=== PATIENT | male | born 1975 | race Caucasian/White ===

== ENCOUNTER 2017-04-15 21:25 | Emergency (ER) | payer MEDICAID, OTHER ==
[2017-04-15 21:46] VITALS: BP 124/74; RESP 18; TEMP 97.3; O2SAT 98
--- NOTE | 2017-04-15 22:37 | ED PDOC ---
HPI: Chest Pain Time Seen by Provider: 04/15/17 21:43 Chief Complaint (Nursing): Chest Pain Chief Complaint (Provider): Chest pain History Per: Patient History/Exam Limitations: no limitations Onset/Duration Of Symptoms: Hrs (one) Current Symptoms Are (Timing): Still Present Associated Symptoms: Nausea Additional Complaint(s): Patient is a 42 year old male presenting with pulsating chest pain that started one hour prior to arrival, associated with right-sided chest tightness that radiates to the right arm (with numbness) and does not worsen with positioning, exertion, or deep breathing. Also reports dizziness, nausea, headache, and a family history of heart problems, diabetes, hypertension, and cancer. Of note, he did not take any medication for the pain. Denies cough, shortness of breath, or leg swelling. Of note, patient reports similar chest pain 2 months ago for which he was admitted overnight at an unnamed hospital. PCP: none provided. Against Medical Advice - AMA Patient Left Against Medical Advice: The patient declines admission to the hospital and wishes to leave the Emergency Department. This action is against my medical advice. This decision was made with informed refusal. The patient was told that admission to the hospital is necessary. Explanation of the reasons why were discussed. The risks of leaving were explained to the patient and include, but are not limited to, worsening of known or currently unknown conditions, permanent disability and from undiagnosed or untreated conditions. The patient has the capacity to make this informed decision and understands my explanation of the current medical problem and risks of leaving. The patient voluntarily accepts these risks and signed an AMA form documenting our conversation. The patient was given the opportunity to ask questions and reconsider. The patient was encouraged to return to the Emergency Department at any time for further care. Past Medical History Reviewed: Historical Data, Nursing Documentation, Vital Signs Vital Signs: Last Vital Signs Temp 97.3 F L 04/15/17 21:38 Pulse 98 H 04/15/17 21:38 Resp 18 04/15/17 21:38 BP 124/74 04/15/17 21:38 Pulse Ox 98 04/16/17 02:31 - Medical History PMH: No Chronic Diseases - Surgical History Surgical History: No Surg Hx - Family History Family History: States: CAD, Diabetes, Hypertension, Other Other Family History: Cancer - Allergies Allergies/Adverse Reactions: Allergies Allergy/AdvReac Type Severity Reaction Status Date / Time No Known Allergies Allergy Verified 07/11/15 22:00 DREW Risk Score for UA/NSTEMI - DREW Risk Score Age > 64: NO 3 or more CAD Risk Factors: NO Known CAD (Stenosis greater than 50%): NO Aspirin use in past 7 days: NO Severe Angina: NO EKG ST changes greater than 0.5mm: NO Positive Cardiac Marker: NO DREW Score: 0 Risk %: 5% Wells Criteria for PE - Wells Criteria for Pulmonary Embolism Clinical Signs and Symptoms of DVT: No P.E is #1 Diagnosis, or Equally Likely: No Heart Rate >100: No Immobilization at least 3 days;Surgery previous 4 weeks: No Previous, objectively diagnosed PE or DVT: No Hemoptysis: No Malignancy w/treatment within 6 months, or palliative: No Total Score: 0 Review of Systems ROS Statement: Except As Marked, All Systems Reviewed And Found Negative Constitutional: Positive for: Other (Dizziness, headache) Cardiovascular: Positive for: Chest Pain (right-sided with chest tightness. Radiates to right arm.) Respiratory: Negative for: Cough, Shortness of Breath Gastrointestinal: Positive for: Nausea Musculoskeletal: Negative for: Other (Leg swelling) Neurological: Positive for: Numbness (Right arm) Physical Exam - Reviewed Nursing Documentation Reviewed: Yes Vital Signs Reviewed: Yes - Physical Exam Appears: Positive for: Well, Non-toxic, No Acute Distress (Comfortable). Negative for: Uncomfortable Head Exam: Positive for: ATRAUMATIC, NORMAL INSPECTION, NORMOCEPHALIC Skin: Positive for: Normal Color, Warm, Dry Eye Exam: Positive for: EOMI, Normal appearance, PERRL ENT: Positive for: Normal ENT Inspection Neck: Positive for: Normal, Painless ROM, Supple Cardiovascular/Chest: Positive for: Regular Rate, Rhythm. Negative for: Murmur Respiratory: Positive for: Normal Breath Sounds. Negative for: Accessory Muscle Use, Respiratory Distress Gastrointestinal/Abdominal: Positive for: Normal Exam, Bowel Sounds, Soft Back: Positive for: Normal Inspection. Negative for: L CVA Tenderness, R CVA Tenderness Extremity: Positive for: Normal ROM. Negative for: Pedal Edema Neurologic/Psych: Positive for: Alert, Oriented - Laboratory Results Result Diagrams: 04/15/17 22:45 04/15/17 22:45 - ECG ECG: Positive for: Interpreted By Me, Viewed By Me ECG Rhythm: Positive for: Normal QRS, Normal ST Segment, Sinus Rhythm, Sinus Tachycardia. Negative for: ST/T Changes Rate: 105 O2 Sat by Pulse Oximetry: 98 (RA) Pulse Ox Interpretation: Normal - Radiology X-Ray: Interpreted by Me, Viewed By Me X-Ray Interpretation: No Acute Disease - Progress Re-evaluation Time: 02:30 Condition: Re-examined, Improved Medical Decision Making Medical Decision Making: Time: 22:19 Initial impression: Chest pain Differential includes but not limited to acute coronary syndrome, pulmonary embolism, aortic dissection. Initial plan: * EKG * Labs * Chest X-Ray * Appointment Manager * Reevaluation Scribe Attestation: Documented by Summer Sheridan, acting as a scribe for Monique Perea MD. Provider Scribe Attestation: All medical record entries made by the Scribe were at my direction and personally dictated by me. I have reviewed the chart and agree that the record accurately reflects my personal performance of the history, physical exam, medical decision making, and the department course for this patient. I have also personally directed, reviewed, and agree with the discharge instructions and disposition. [id number] CT Scan: EXAM: CT Angiography Chest With Intravenous Contrast CLINICAL HISTORY: 42 years old, male; Pain; Chest pain TECHNIQUE: Axial computed tomographic angiography images of the chest with intravenous contrast using pulmonary embolism protocol. This CT exam was performed using one or more of the following dose reduction techniques: automated exposure control, adjustment of the mA and/or kV according to patient size, and/or use of iterative reconstruction technique. MIP reconstructed images were created and reviewed. Coronal and sagittal reformatted images were created and reviewed. CONTRAST: 95 mL of [id number] administered intravenously. EXAM DATE/TIME: 04/15/2017 11:51 PM COMPARISON: CR - CHEST TWO VIEWS (PA/LAT) 04/15/2017 11:01:33 PM FINDINGS: Heart, Aorta and Pulmonary arteries: The heart is enlarged. There is trace fluid in pericardial recesses. There is no aneurysm or dissection. Bolus timing limits evaluation of pulmonary arteries. There are no pulmonary emboli. Lungs and Pleural Spaces: Trachea and main bronchi are patent. There is no pneumothorax.There is dependent atelectasis greatest at the lung bases. There is no focal consolidation. There are no effusions Mediastinum: There is fatty infiltration of the mediastinum. There are no pathologically enlarged mediastinal or hilar nodes. Esophagus is unremarkable. Thyroid: Thyroid is only partially imaged. Bones/joints: There are degenerative changes in the osseus structures. Soft tissues: unremarkable Upper abdomen: There is fatty infiltration of the liver. IMPRESSION: Slightly limited by bolus timing, no aneurysm, dissection or pulmonary embolus; mild cardiomegaly; no focal pneumonia; fatty liver. Scribe Attestation: Documented by Vani Maharaj, acting as a scribe for Monique Perea MD. Scribe Attestation: All medical record entries made by the Scribe were at my direction and personally dictated by me. I have reviewed the chart and agree that the record accurately reflects my personal performance of the history, physical exam, medical decision making, and the department course for this patient. I have also personally directed, reviewed, and agree with the discharge instructions and disposition. Disposition - Clinical Impression Clinical Impression: Chest pain, Left against medical advice - Patient ED Disposition Is Patient to be Admitted: No Doctor Will See Patient In The: Office Counseled Patient/Family Regarding: Studies Performed, Diagnosis, Need For Followup - Disposition Referrals: Etta Mitchell MD [Family Provider] - Disposition: Routine/Home Disposition Time: 02:30 Condition: GOOD Additional Instructions: Return for worsening. Follow up with your PCP in 2-3 days. Instructions: Chest Pain (ED), Against Medical Advice (ED)
[2017-04-15 22:58] LABS: BASO % 0.1 % (0.0-2.0); EOS # 0.1 K/uL (0.0-0.7); HEMATOCRIT 43.5 % (35.0-51.0); LYMPH % 14.8 % (20.0-40.0); MEAN CELL VOLUME 85.6 fl (80.0-94.0); MEAN CORPUSCULAR HEMOGLOBIN 28.2 pg (27.0-31.0); MEAN CORPUSCULAR HGB CONC 32.9 g/dL (33.0-37.0); MONO # 0.7 K/uL (0.0-0.8); MONO % 11.1 % (0.0-10.0); NEUT # 4.8 K/uL (1.8-7.0); NRBC % 0.1 % (0.0-0.0); RED CELL DISTRIBUTION WIDTH 13.2 % (11.5-14.5); WHITE BLOOD COUNT 6.6 K/uL (4.8-10.8)
[2017-04-15] MEDS ORDERED: Morphine 4 MG/ML VIAL IVP ONE (22:58)
[2017-04-15 23:05] LABS: BLOOD UREA NITROGEN 18 mg/dl (9-20); GFR AFRICAN-AMERICAN > 60
[2017-04-15 23:45] LABS: CALCIUM 9.7 mg/dL (8.4-10.2); CARBON DIOXIDE 27 mmol/L (22-30); CHLORIDE 104 mmol/L (98-107); GLUCOSE,RANDOM 94 mg/dL (75-110); SODIUM 141 mmol/l (132-148)
[2017-04-16] MEDS ORDERED: Sodium Chloride 0.9% 50 ML IV ONE ×2 (00:55→01:08)
[2017-04-16] MEDS ORDERED: Iodixanol 320 MG/ML 100 ML BOTTLE IV ONE ×2 (00:55→01:07)
--- NOTE | 2017-04-16 01:48 | CT ---
EXAM: CT Angiography Chest With Intravenous Contrast CLINICAL HISTORY: 42 years old, male; Pain; Chest pain TECHNIQUE: Axial computed tomographic angiography images of the chest with intravenous contrast using pulmonary embolism protocol. This CT exam was performed using one or more of the following dose reduction techniques: automated exposure control, adjustment of the mA and/or kV according to patient size, and/or use of iterative reconstruction technique. MIP reconstructed images were created and reviewed. Coronal and sagittal reformatted images were created and reviewed. CONTRAST: 95 mL of administered intravenously. EXAM DATE/TIME: 04/15/2017 11:51 PM COMPARISON: CR - CHEST TWO VIEWS (PA/LAT) 04/15/2017 11:01:33 PM FINDINGS: Heart, Aorta and Pulmonary arteries: The heart is enlarged. There is trace fluid in pericardial recesses. There is no aneurysm or dissection. Bolus timing limits evaluation of pulmonary arteries. There are no pulmonary emboli. Lungs and Pleural Spaces: Trachea and main bronchi are patent. There is no pneumothorax.There is dependent atelectasis greatest at the lung bases. There is no focal consolidation. There are no effusions Mediastinum: There is fatty infiltration of the mediastinum. There are no pathologically enlarged mediastinal or hilar nodes. Esophagus is unremarkable. Thyroid: Thyroid is only partially imaged. Bones/joints: There are degenerative changes in the osseus structures. Soft tissues: unremarkable Upper abdomen: There is fatty infiltration of the liver. IMPRESSION: Slightly limited by bolus timing, no aneurysm, dissection or pulmonary embolus; mild cardiomegaly; no focal pneumonia; fatty liver
[2017-04-16 02:32] VITALS: PULSE 105
--- NOTE | 2017-04-16 10:04 | RAD ---
HISTORY: chest pain COMPARISON: CTA chest performed 04/16/17, chest x-ray performed 09/17/13 TECHNIQUE: Chest PA and lateral FINDINGS: Examination limited by habitus and patient obliquity. LUNGS: No focal consolidation. Please note that chest x-ray has limited sensitivity for the detection of pulmonary masses. PLEURA: No significant pleural effusion identified. No definite pneumothorax . CARDIOVASCULAR: Borderline cardiomegaly. OSSEOUS STRUCTURES: Degenerative changes of the spine. VISUALIZED UPPER ABDOMEN: Unremarkable. OTHER FINDINGS: None. IMPRESSION: No focal consolidation, significant pleural effusion, or definite pneumothorax identified.
--- NOTE | 2017-04-16 10:19 | CARD ---
APPROVED REPORT EKG Measurement Heart [id number] ID [id number] <Conclusion> Sinus tachycardia Otherwise normal ECG
== END 2017-04-16 03:00 | disposition left against medical advice (07) ==
LOC: H.ER 21:25 → EDBD 21:25 → H.ER 04-16 03:00
DX: R07.89 Other chest pain (principal); Z82.49 Family history of ischemic heart disease and other diseases of the circulatory system

== ENCOUNTER 2018-02-25 15:33 | Emergency (ER) | payer MEDICAID ==
[2018-02-25 15:45] VITALS: RESP 16; TEMP 98.5
--- NOTE | 2018-02-25 16:19 | ED PDOC ---
HPI: Chest Pain Time Seen by Provider: 02/25/18 15:52 Chief Complaint (Nursing): Chest Pain Chief Complaint (Provider): chest pain History Per: Patient History/Exam Limitations: no limitations Onset/Duration Of Symptoms: Days (2) Current Symptoms Are (Timing): Intermittent Episodes Severity: Severe Quality: Sharp Associated Symptoms: Nausea, Dyspnea. denies: Diaphoresis, Syncope Exacerbating Factors: Deep Breathing Additional Complaint(s): RIGHT sided chest pain intermittent episodes last few minutes occurs with exertion and resolves with some rest recurrent and has happened 2-3 times over last day today pain associated with RUQ and RIGHT flank pain as well has been seen in this ER multiple times for the same pain, no outpatient follow up done PMD in [place]. does not remember name. Past Medical History Reviewed: Historical Data, Nursing Documentation, Vital Signs Vital Signs: Last Vital Signs Temp 98.5 F 02/25/18 15:43 Pulse 106 H 02/25/18 15:43 Resp 16 02/25/18 15:43 BP 131/76 02/25/18 15:43 Pulse Ox 97 02/25/18 17:59 - Medical History PMH: No Chronic Diseases - Surgical History Surgical History: Hernia Repair - Family History Family History: States: CAD, Diabetes, Hypertension - Social History Current smoker - smoking cessation education provided: Yes Alcohol: Occasional Drugs: Denies - Home Medications Home Medications: Ambulatory Orders Medication Instructions Recorded Ciprofloxacin HCl [Cipro] 250 mg PO BID #14 tab 02/25/18 Cyclobenzaprine [Flexeril] 5 mg PO Q8 PRN #15 tab 02/25/18 Ibuprofen [Motrin Tab] 600 mg PO Q8 PRN #60 tab 02/25/18 - Allergies Allergies/Adverse Reactions: Allergies Allergy/AdvReac Type Severity Reaction Status Date / Time No Known Allergies Allergy Verified 07/11/15 22:00 Review of Systems ROS Statement: Except As Marked, All Systems Reviewed And Found Negative (and as per HPI) Cardiovascular: Positive for: Chest Pain, Palpitations, Light Headedness. Negative for: Edema Respiratory: Positive for: Shortness of Breath, Pleuritic Pain Gastrointestinal: Positive for: Nausea, Abdominal Pain. Negative for: Vomiting , Diarrhea, Melena, Hematochezia Musculoskeletal: Positive for: Back Pain Physical Exam - Reviewed Nursing Documentation Reviewed: Yes Vital Signs Reviewed: Yes - Physical Exam Appears: Positive for: Non-toxic, No Acute Distress Head Exam: Positive for: ATRAUMATIC, NORMOCEPHALIC Skin: Positive for: Warm, Dry Eye Exam: Positive for: EOMI, PERRL ENT: Negative for: Pharyngeal Erythema, Tonsillar Exudate Neck: Positive for: Painless ROM, Supple Cardiovascular/Chest: Positive for: Regular Rate, Rhythm, Chest Non Tender. Negative for: Edema, Murmur Respiratory: Positive for: Normal Breath Sounds. Negative for: Accessory Muscle Use, Rales, Rhonchi, Wheezing, Respiratory Distress Gastrointestinal/Abdominal: Positive for: Soft, Tenderness (RUQ ttp), Other ( obese protuberant abdomen). Negative for: Mass, Distended, Guarding, Rebound Back: Positive for: R CVA Tenderness. Negative for: L CVA Tenderness, Vertebral Tenderness, Decreased ROM Extremity: Positive for: Normal ROM. Negative for: Deformity Lymphatic: Negative for: Adenopathy Neurologic/Psych: Positive for: Alert. Negative for: Motor/Sensory Deficits - Laboratory Results Result Diagrams: 02/25/18 16:35 02/25/18 16:35 - ECG ECG Rhythm: Positive for: Normal ST Segment, Sinus Tachycardia, Nonspecific Changes O2 Sat by Pulse Oximetry: 97 Pulse Ox Interpretation: Normal - Radiology X-Ray: Interpreted by Fl X-Ray Interpretation: No Acute Disease - Progress ED Course And Treament: Accession No. : [id number] Patient Name / ID : MICHI PANDA / [id number] Exam Date : 02/25/2018 16:29:17 ( Approved ) Study Comment : Sex / Age : M / 43Y Creator : Ap Vallejo MD Dictator : Boiler Assistant Operator : Time Clock Repairer : Ap Vallejo MD Approver2 : Report Date : 02/25/2018 17:51:19 My Comment : HISTORY: RUQ and RIGHT flank pain COMPARISON: Correlation made with prior CTA chest 04/16/2017 which partially image the upper abdomen. TECHNIQUE: Sonographic evaluation of the abdomen. FINDINGS: LIVER: Measures 16.7 cm. Smooth contour though increased echogenicity of the liver parenchyma suggesting fatty infiltration however other infiltrative hepatic cellular disease process not excluded. . No mass. No intrahepatic bile duct dilatation. GALLBLADDER: Unremarkable. No shadowing intraluminal gallbladder calculi COMMON BILE DUCT: Measures 3.0 spleen is mildly enlarged mm. No stones. No dilatation. PANCREAS: Unremarkable as visualized. No mass. No ductal dilatation. RIGHT KIDNEY: Measures 12.4 x 4.2 x 4.5cm. Normal echogenicity. No calculus, mass, or hydronephrosis. LEFT KIDNEY: Measures 13.1 x 4.2 x 4.6cm. Normal echogenicity. No calculus, mass, or hydronephrosis. SPLEEN: Spleen is mildly enlarged measuring approximately 13.7 cm. . No mass. AORTA: No aneurysmal dilatation. IVC: Unremarkable. OTHER FINDINGS: None. IMPRESSION: Fatty infiltration however other infiltrative hepatocellular disease process not excluded. Splenomegaly. Labs demonstrate WBC in urinalysis No emergently significant abnormalities. On reevaluation pt appears comfortable. Report the pain is infrequent. DW pt findings. Pt declines CT at this time to evaluate for renal colic. Prefers treatment for UTI and f/u outpatient. Will return if pain worsens. Disposition - Clinical Impression Clinical Impression: UTI (urinary tract infection), Right flank pain - Disposition Referrals: Etta Mitchell MD [Family Provider] - (FOLLOW UP WITH DR MITCHELL WITHIN 3 DAYS) Disposition: Routine/Home Disposition Time: 18:44 Condition: STABLE Prescriptions: Ciprofloxacin HCl [Cipro] 250 mg PO BID #14 tab Cyclobenzaprine [Flexeril] 5 mg PO Q8 PRN #15 tab PRN Reason: muscle spasm Ibuprofen [Motrin Tab] 600 mg PO Q8 PRN #60 tab PRN Reason: Pain, Moderate (4-7) Instructions: Urinary Tract Infections in Adults, Flank Pain, Acute Abdomen ( Belly Pain) Forms: [facility] ED School/Work Excuse
[2018-02-25 16:51] LABS: BASO % 0.2 % (0.0-2.0); EOS # 0.1 K/uL (0.0-0.7); EOS % 2.1 % (0.0-4.0); HEMOGLOBIN 14.8 g/dL (12.0-18.0); LYMPH # 1.5 K/uL (1.0-4.3); LYMPH % 21.5 % (20.0-40.0); MEAN CELL VOLUME 84.9 fl (80.0-94.0); MEAN CORPUSCULAR HEMOGLOBIN 28.2 pg (27.0-31.0); MEAN CORPUSCULAR HGB CONC 33.2 g/dL (33.0-37.0); MEAN PLATELET VOLUME 10.6 fl (7.2-11.7); MONO # 0.7 K/uL (0.0-0.8); MONO % 9.9 % (0.0-10.0); NEUT # 4.6 K/uL (1.8-7.0); NEUT % 66.3 % (50.0-75.0); NRBC % 0.1 % (0.0-0.0); RBC 5.26 Mil/uL (4.40-5.90); RED CELL DISTRIBUTION WIDTH 13.3 % (11.5-14.5); WHITE BLOOD COUNT 6.9 K/uL (4.8-10.8)
[2018-02-25 16:54] LABS: ALB/GLOB RATIO 1.4 (1.0-2.1); ALBUMIN 4.2 g/dL (3.5-5.0); ALT/SGPT 44 U/L (21-72); AST/SGOT 30 U/L (17-59); BLOOD UREA NITROGEN 21 mg/dl (9-20); CALCIUM 9.7 mg/dL (8.4-10.2); GFR AFRICAN-AMERICAN > 60; GFR NON-AFRICAN AMERICAN > 60; LIPASE 60 U/L (23-300)
[2018-02-25 16:57] LABS: PROTHROMBIN TIME 10.9 Seconds (9.8-13.1)
[2018-02-25 16:58] LABS: PARTIAL THROMBOPLASTIN TIME 28.5 Seconds (25.6-37.1)
[2018-02-25 17:28] LABS: B-TYPE NATRIURETIC PEPTIDE < 11.1 pg/ml (0-450)
--- NOTE | 2018-02-25 17:52 | US ---
HISTORY: RUQ and RIGHT flank pain COMPARISON: Correlation made with prior CTA chest 04/16/2017 which partially image the upper abdomen. TECHNIQUE: Sonographic evaluation of the abdomen. FINDINGS: LIVER: Measures 16.7 cm. Smooth contour though increased echogenicity of the liver parenchyma suggesting fatty infiltration however other infiltrative hepatic cellular disease process not excluded. . No mass. No intrahepatic bile duct dilatation. GALLBLADDER: Unremarkable. No shadowing intraluminal gallbladder calculi COMMON BILE DUCT: Measures 3.0 spleen is mildly enlarged mm. No stones. No dilatation. PANCREAS: Unremarkable as visualized. No mass. No ductal dilatation. RIGHT KIDNEY: Measures 12.4 x 4.2 x 4.5cm. Normal echogenicity. No calculus, mass, or hydronephrosis. LEFT KIDNEY: Measures 13.1 x 4.2 x 4.6cm. Normal echogenicity. No calculus, mass, or hydronephrosis. SPLEEN: Spleen is mildly enlarged measuring approximately 13.7 cm. . No mass. AORTA: No aneurysmal dilatation. IVC: Unremarkable. OTHER FINDINGS: None. IMPRESSION: Fatty infiltration however other infiltrative hepatocellular disease process not excluded. Splenomegaly.
[2018-02-25 18:32] LABS: SQUAMOUS EPITHIAL 2 /hpf (0-5); URINE BILIRUBIN NEGATIVE (NEGATIVE); URINE BLOOD NEGATIVE (NEGATIVE); URINE CLARITY SLIGHTY-CLOUDY (Clear); URINE COLOR YELLOW (YELLOW); URINE GLUCOSE (UA) NEG (Normal); URINE LEUKOCYTE ESTERASE TRACE Leu/uL (Negative); URINE PROTEIN NEGATIVE (NEGATIVE); URINE UROBILINOGEN 0.2-1.0 mg/dL (0.2-1.0)
[2018-02-25 18:43] LABS: BARBITURATES, UR NEGATIVE (NEGATIVE); BENZODIAZEPINES, UR NEGATIVE (NEGATIVE); OPIATES, UR NEGATIVE (NEGATIVE); PHENCYCLIDINE, UR NEGATIVE (NEGATIVE)
--- NOTE | 2018-02-25 18:43 | RAD ---
HISTORY: COMPARISON: 11/13/2017. TECHNIQUE: Chest PA and lateral FINDINGS: LINES AND TUBES: None. LUNG AND PLEURA: The lungs are well inflated and clear. No focal consolidation with HEART AND MEDIASTINUM: The heart is not enlarged. The hilar and mediastinal contours are within normal limits. SKELETAL STRUCTURES: The bony structures are within normal limits for the patient's age. VISUALIZED UPPER ABDOMEN: Normal. OTHER FINDINGS: None. IMPRESSION: No active pulmonary disease.
[2018-02-25 19:12] VITALS: BP 127/67; PULSE 91; O2SAT 99
== END 2018-02-25 18:53 | disposition home or self-care (01) ==
LOC: H.ER 15:33
DX: N39.0 Urinary tract infection, site not specified (principal); F17.200 Nicotine dependence, unspecified, uncomplicated

== ENCOUNTER 2018-06-16 15:32 | Emergency (ER) | payer MEDICAID ==
[2018-06-16 15:45] VITALS: RESP 16; O2SAT 96
[2018-06-16 16:59] VITALS: BP 132/89; PULSE 105; TEMP 98.1
--- NOTE | 2018-06-16 17:21 | ED PDOC ---
HPI: Back Time Seen by Provider: 06/16/18 16:21 Chief Complaint (Nursing): Back Pain Chief Complaint (Provider): Neck Pain History Per: Patient History/Exam Limitations: no limitations Onset/Duration Of Symptoms: Days (x1 month) Current Symptoms Are (Timing): Still Present Additional Complaint(s): 43 year old male presents to the ED for evaluation of atraumatic right sided neck pain for the past month, worse with movement of the neck. On 05/15 patient was seen in [facility] initially, where he was given scripts for anti- inflammatory meds and muscle relaxers. He reports since his visit, despite the meds, the pain is persistent, but admits failing to follow up after the initial visit. Otherwise denies chest pain, shortness of breath, fever, numbness, tingling, or shoulder pain. PMD: none provided Past Medical History Reviewed: Historical Data, Nursing Documentation, Vital Signs Vital Signs: Last Vital Signs Temp 98.1 F 06/16/18 16:59 Pulse 105 H 06/16/18 16:59 Resp 16 06/16/18 16:59 BP 132/89 06/16/18 16:59 Pulse Ox 96 06/16/18 16:59 - Medical History PMH: No Chronic Diseases Denies: Chronic Kidney Disease - Surgical History Surgical History: Hernia Repair - Family History Family History: States: CAD, Diabetes, Hypertension - Home Medications Home Medications: Ambulatory Orders Medication Instructions Recorded Ciprofloxacin HCl [Cipro] 250 mg PO BID #14 tab 02/25/18 Cyclobenzaprine [Flexeril] 5 mg PO Q8 PRN #15 tab 02/25/18 RX: Ibuprofen [Motrin Tab] 600 mg PO Q8 PRN #60 tab 02/25/18 Lidocaine 5% [Lidoderm] 1 patch TP DAILY #30 patch 05/15/18 RX: Ibuprofen [Motrin Tab] 600 mg PO Q8 #30 tab 05/15/18 diaZEpam [Valium] 2 mg PO TID #15 tab 05/15/18 Meloxicam [Mobic] 15 mg PO DAILY PRN #10 tab 06/16/18 Methocarbamol [Robaxin] 500 mg PO TID PRN #15 tab 06/16/18 Methylprednisolone [Medrol Dose 4 mg PO DAILY #21 mg 06/16/18 Pack (21 tabs)] - Allergies Allergies/Adverse Reactions: Allergies Allergy/AdvReac Type Severity Reaction Status Date / Time No Known Allergies Allergy Verified 06/16/18 15:41 Review of Systems ROS Statement: Except As Marked, All Systems Reviewed And Found Negative Constitutional: Negative for: Fever Cardiovascular: Negative for: Chest Pain Respiratory: Negative for: Shortness of Breath Musculoskeletal: Positive for: Neck Pain (right-sided ). Negative for: Shoulder Pain Neurological: Negative for: Numbness (or tingling) Physical Exam - Reviewed Nursing Documentation Reviewed: Yes Vital Signs Reviewed: Yes - Physical Exam Appears: Positive for: No Acute Distress Head Exam: Positive for: ATRAUMATIC, NORMOCEPHALIC Skin: Positive for: Normal Color. Negative for: Rash Eye Exam: Positive for: Normal appearance ENT: Positive for: Normal ENT Inspection. Negative for: Pharyngeal Erythema, Tonsillar Exudate, Tonsillar Swelling Neck: Negative for: Painless ROM (right sided paracervical muscle tenderness; no midline tenderness) Cardiovascular/Chest: Positive for: Regular Rate, Rhythm Respiratory: Positive for: Normal Breath Sounds. 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 Advised to see either an ortho, neuro, or pain management doctor for possible MRI. Scribe Attestation: Documented by Marisabel Joya, acting as a scribe for Ronald Costa PA-C Provider Scribe Attestation: All medical record entries made by the Scribe were at my direction and personally dictated by me. I have reviewed the chart and agree that the record accurately reflects my personal performance of the history, physical exam, medical decision making, and the department course for this patient. I have also personally directed, reviewed, and agree with the discharge instructions and disposition. Disposition - Clinical Impression Clinical Impression: Neck pain - Patient ED Disposition Is Patient to be Admitted: No - Disposition Referrals: Mick Lea MD [Medical Doctor] - Disposition: Routine/Home Disposition Time: 16:30 Condition: STABLE Additional Instructions: AMARILYS BORDEN, thank you for letting us take care of you today. Your provider was Jessica Brown MD and you were treated for NECK PAIN. The emergency medical care you received today was directed at your acute symptoms. If you were prescribed any medication, please fill it and take as directed. It may take several days for your symptoms to resolve. Return to the Emergency Department if your symptoms worsen, do not improve, or if you have any other problems. Please contact your doctor or call one of the physicians/clinics you have been referred to that are listed on the Patient Visit Information form that is included in your discharge packet. Bring any paperwork you were given at discharge with you along with any medications you are taking to your follow up visit. Our treatment cannot replace ongoing medical care by a primary care provider outside of the emergency department. Thank you for allowing the [facility] team to be part of your care today. If you had an X-Ray or CT scan: A Radiologist will review the ED reading if any change in treatment is needed we will contact you. If you had a blood, urine, or wound culture: It will take several days for the results, if any change in treatment is needed we will contact you. If you had an STI test: It will take 48 hours for the results. Please call after 1 week if you have not heard back. Prescriptions: Meloxicam [Mobic] 15 mg PO DAILY PRN #10 tab PRN Reason: Pain Methocarbamol [Robaxin] 500 mg PO TID PRN #15 tab PRN Reason: Muscle Spasm Methylprednisolone [Medrol Dose Pack (21 tabs)] 4 mg PO DAILY #21 mg Instructions: Generalized Neck Pain (DC) Forms: [employer] ([place])
== END 2018-06-16 16:59 | disposition home or self-care (01) ==
LOC: H.ER 15:32
DX: M54.2 Cervicalgia (principal)
CPT/HCPCS: 96372; 99281; J1885